=== PATIENT | male | born 1965 | race American Indian/Alaskan Native ===

== ENCOUNTER 2017-03-08 07:33 | Day surgery (SDC) | payer MEDICAID ==
[2017-02-22 11:30] VITALS: BMI 28.8
[2017-03-08] MEDS ORDERED: Bupivacaine/Epi 0.25%-1:200,000 10 ml PF inj IJ ONE (07:40)
[2017-03-08] MEDS ORDERED: ceFAZolin IV 2 gm in Dextrose 1 GM/50 ML BAG IVPB ONE (07:40)
[2017-03-08] MEDS ORDERED: Lidocaine 1% Inj (20ml) ONE (07:41)
[2017-03-08] MEDS ORDERED: Midazolam 2 MG/2 ML VIAL ONE (07:52)
[2017-03-08] MEDS ORDERED: Propofol 10 mg/ml Inj (20 ML) ONE (07:52)
[2017-03-08] MEDS ORDERED: Lactated Ringer's 1,000 ML IV ONE ×3 (08:20→10:00)
[2017-03-08] MEDS ORDERED: Rocuronium 10 mg/ml (5 ml) ONE (09:22)
[2017-03-08] MEDS ORDERED: HYDROmorphone 0.5 mg/0.5 ml ISec IVP PRN (10:34)
--- NOTE | 2017-03-08 10:38 | PCM.SURG1 ---
Surgeon's Initial Post Op Note - Surgeon's Notes Surgeon: Dr. Westfall Lease Operator: Dr. Lay PGY1, Gauri CALABRESE Type of Anesthesia: General Endo Pre-Operative Diagnosis: R inguinal hernia Operative Findings: see dictation Post-Operative Diagnosis: same Operation Performed: open R inguinal hernia repair w/ mesh Specimen/Specimens Removed: cord lipoma Estimated Blood Loss: EBL {In ML}: 10 Post-Op Condition: Good Date of Surgery/Procedure: 03/08/17 Time of Surgery/Procedure: 08:20
[2017-03-08] MEDS ORDERED: Lactated Ringer's 1,000 ML IV SCH (10:45)
[2017-03-08] MEDS ORDERED: HYDROmorphone 0.5 mg/0.5 ml ISec IVP ONE (12:08)
--- NOTE | 2017-03-08 12:22 | OP ---
PROCEDURE DATE: 03/08/2017 PREOPERATIVE DIAGNOSIS: Right inguinal hernia. POSTOPERATIVE DIAGNOSES: Right inguinal hernia and lipoma of the cord. PROCEDURE DONE: 1. Right inguinal hernia repair with the mesh. 2. Excision of the lipoma of the cord. SURGEON: Franco Westfall MD BUSINESS ADMINISTRATION INSTRUCTOR: Katiana Lay and Gauri Carpenter. Gauri was present from the beginning to he end of the pro cedure, helped in prepping and draping and the closure of the wound. ANESTHESIA: General endotracheal tube anesthesia. ESTIMATED BLOOD LOSS: Around 10 mL. DRAINS: None. PATHOLOGY: The lipoma of the cord was sent for the pathology. COMPLICATIONS: None. INTRAOPERATIVE STEPS: This is a 52-year-old male, presented with a right inguinal hernia and the pat ient was consented for the right inguinal hernia repair with the mesh. Brought to the OR, placed sup ine on the operating table. After induction of the anesthesia, the right groin and abdomen was prepp ed and draped in a usual sterile fashion. The transverse 5 cm incision was made. After incising ski n and subcutaneous tissue, the fascia was incised and upper and lower flap was created and the inguin al ligament as well as conjoint tendon was identified and the spermatic cord structure was dissected free from the floor and the sac was identified. Sac was reduced back into the peritoneal cavity and a small plug was placed and plug was sutured to the surrounding tissue and now the patch was placed a nd patch was sutured medially to pubic tubercle, inferior to the inguinal ligament, superior to the c onjoint tendon, lateral to the lateral pelvic wall and the internal ring was recreated. After proper hemostasis, the external oblique aponeurosis was sutured with 0 Vicryl continuous suture and externa l ring was recreated and the subcu was closed with a 2-0 Vicryl, skin with a 4-0 Monocryl. Dry steri le dressing was applied. The patient tolerated the procedure well. Count of instruments and gauze w as correct. There was no apparent complication. The patient was extubated in the OR, sent to the stanesthesia care unit in stable condition. Franco Westfall MD cc: [id number] TT: 03/08/2017 12:21:48 sn
[2017-03-08 12:52] VITALS: O2SAT 100
[2017-03-08] MEDS ORDERED: Oxycodone/Acetaminophen 5/325 mg Tab PO PRN (13:17)
[2017-03-08] MEDS ORDERED: Oxycodone/Acetaminophen 5/325 mg Tab ONE (13:20)
[2017-03-08 16:24] VITALS: BP 130/70; PULSE 68; RESP 20; TEMP 98
== END 2017-03-08 16:00 | disposition home or self-care (01) ==
LOC: C.SDS 07:33
PROVIDERS: ATTEND Surgery Surgical Critical Care
DX: K40.90 Unilateral inguinal hernia, without obstruction or gangrene, not specified as recurrent (principal); D17.6 Benign lipomatous neoplasm of spermatic cord
CPT/HCPCS: 49505; 55520; 88304; C1781; J0690; J1170; J1885; J2250; J2704; J3010; J7120